=== PATIENT | female | born 1995 | race Caucasian/White ===

== ENCOUNTER 2019-09-11 23:57 | Inpatient (IN) | payer OTHER, SELFPAY ==
[2019-09-11 06:05] VITALS: BMI 27.3
--- NOTE | 2019-09-11 07:58 | OB.TRI.HP_ITS ---
History of Present Illness Date of Service: 09/11/19 Was patient seen by the physician?: Yes Reason For Visit: R/O LABOR Date of Service: 09/11/19 Final DARCY: 09/11/19 Gestational age: 40 Weeks and 0 Days History of Present Illness: 24yo @ 40 weeks, c/o contractions- found to be 3cm on initial exam- made change to 4cm but patient reports ctx are more sporadic. pt planning natural child . 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
[2019-09-12] MEDS: 0.9% Saline Lock 10 ML Syringe IV (00:25)
[2019-09-12 00:34] LABS: Absolute Lymphocyte Count 1.02 X10^3/uL (0.83-4.51); Absolute Neutrophil Count 11.9 X10^3/uL (2.0-7.7); Basophil# 0.01 X10^3/uL; Basophil% 0.1 % (0-1); Eosinophil# 0.01 X10^3/uL; Eosinophils% 0.1 % (0-5); Hematocrit 36.9 % (37-47); Hemoglobin 12.9 g/dL (12.0-15.0); Lymphocyte # 1.02 X10^3/ul (4.0); Lymphocyte % 7.4 % (19-41); Mean Corpuscular Hgb 33.9 pg (27.0-32.0); Mean Corpuscular Volume 97.1 fL (81-99); Monocyte# 0.75 X10^3/uL; Monocyte% 5.5 % (0-10); NRBC Flagged by Analyzer 0 % (0-5); Neutrophil # 11.89 X10^3/uL (2.7-7.7); Neutrophil % 86.7 % (47-70); Platelet Count 188 K/mm3 (150-450); RBC Distribution Width CV 12.1 % (11.6-14.6); RBC Distribution Width SD 43.2 fl (35.1-43.9); White Blood Count 13.7 K/mm3 (4.4-11.0)
--- NOTE | 2019-09-12 02:32 | PCM.HP.OB ---
History Date of Admission: 09/11/19 Final DARCY: 09/11/19 Final DARCY Source: LMP Gestational age: 40 Weeks and 1 Days History of this : This is a 24 year-old, G 1P0 at 40.1 weeks gestational age presents in active labor- planning natural child Allergies No Known Allergies Allergy (Verified 09/12/19 00:28) Home Medications: Home Medications Pnv No.95/Ferrous Fum/Folic AC [ Formula] 1 ea PO DAILY 09/11/19 Smoking Status: Never smoker Alcohol: None Number of Fetus(es): 1 History Past Pregnancies: Past Pregnancies Delivery Date Name GA/ Weeks Outcome Route Wt Infant Sex Labor Length Anesthesia Delivery Location Provider FOB Labs: gbs neg, O neg Expected Delivery Method: Spontaneous Vaginal Physical Exam General: Alert, Oriented x3 Abdomen: Soft, Gravid Neurological: Cranial nerves II-XII grossly intact 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 admit to L&D monitor fhr/toco declines Pain mgmt - planning natural child anticipate
--- NOTE | 2019-09-12 05:33 | PCM.PN.BLA ---
Progress Note pt seen at bedside, pushing for approximately one hour. pt is exhausted and is considering an epdiural for pain relief and to rest. Will continue to push at this time. Discussed she is making progress FH at +1 station, discussed she does have prominent pubic bone and fetus feels like possibly OP position. pt wants to continue pushing at this time.
[2019-09-12] MEDS: Lactated Ringers 500 ML 999 ML IV (05:45)
[2019-09-12] MEDS: Oxytocin 30 units/NS 500 ml 30 UNITS/500 ML IV.SOLN 334 UNITS IV (06:17)
--- NOTE | 2019-09-12 06:34 | PCM.OPRPT ---
Vaginal Delivery Maternal Presentation: Active Labor Amniotic Membrane Rupture Type: Artificial Amniotic Fluid Description: Clear Final DARCY: 09/11/19 Gestational age: 40 Weeks and 1 Days Date of Procedure: 09/12/19 Pre-Operative Diagnosis: term gestation, spontaneous labor Post-Operative Diagnosis: live male infant Surgery/ Procedure Performed: Vacuum Assisted Vaginal Delivery Type of Anesthesia: None Description of Procedure: Maternal exhaustion. Good maternal pushing efforts. Making progress head at the +3 station. Patient was counseled on application of Kiwi vacuum. Patient was counseled on the risks of using the vacuum including but not limited to vaginal lacerations, scalp lacerations, brain bleeds. Patient and want to proceed with its use. At this time the bladder was drained approximately 30 cc of urine was expelled. Vacuum was applied at the flexion point and with good maternal pushing efforts vacuum was used for a total of 2 contractions 1 pop off at this time the head was . after the pop off lidocaine was injected into the perineum and a right mediolateral episiotomy was performed. At this point with good maternal pushing efforts the head was delivered followed by the shoulders and the rest of infant's body. The infant was pink and vigorous and placed on the maternal chest. Delayed cord clamping was performed. Respiratory Therapy Manager respiratory and other nursing staff were in the room in case of need of extra assistance. RML second-degree was appreciated. Lidocaine was injected at the episiotomy site. It was repaired using 2-0 Vicryl suture and 3-0 rapide. Sent was delivered intact without complication. Presentation: Vertex Placental Delivery Description: Spontaneous Placenta Disposition: [facility] Cord Vessel Description: 3 Vessels Cord Entanglement: None Estimated Blood Loss: 350 Infant A gender: Male (1 minute): 8 (5 minute): 9 Episiotomy Description: Right Mediolateral, 2nd degree Laceration: None Medications given after delivery: IV Pitocin Complications: None
[2019-09-12] MEDS: Ibuprofen 600 MG Tablet PO ×2 (07:42→16:05)
[2019-09-12 12:38] VITALS: BP 102/57; PULSE 102; RESP 14; TEMP 36.9
[2019-09-12 15:39] VITALS: BP 115/58; PULSE 104; RESP 14; TEMP 36.3
[2019-09-12 20:33] VITALS: BP 113/51; PULSE 102; RESP 14; TEMP 36.8
[2019-09-13 04:21] VITALS: BP 106/59; PULSE 94; RESP 14; TEMP 36.7
--- NOTE | 2019-09-13 08:10 | PCM.PN.OB ---
Subjective: No complaints - Physical Exam Vitals/I&O's: Vital Signs Temp Pulse Resp BP 98.1 F 94 14 106/59 L 09/13/19 04:21 09/13/19 04:21 09/13/19 04:21 09/13/19 04:21 Oxygen Delivery Method Room Air Weight: 159 lb 9.835 oz Body Mass Index (BMI) 27.3 Intake and Output for Last 24 Hours 09/11/19 09/12/19 09/13/19 23:59 23:59 23:59 Intake Total 1000 / 1000 Output Total 950 / 950 Balance 50 / 50 General: Alert, Oriented x3 Abdomen: Soft, Non Tender, Non-Distended - ff mid & below umb Extremities: No Calf Tenderness Laboratory Results 09/12/19 08:12: Screen NEGATIVE, Baby's Blood Type O POSITIVE, Baby's SUJIT NEGATIVE Current Medications Acetaminophen (Tylenol) 1,000 mg PO Q8H PRN PRN PRN Reason: Pain Score 1-3/10 Bisacodyl (Dulcolax) 10 mg RECTAL UD PRN PRN Reason: If no BM Dibucaine (Dibucaine) 1 applic TOPICAL TID PRN PRN; Protocol PRN Reason: Discomfort Hydrocortisone (Hytone) 1 applic TOPICAL TID PRN PRN; Protocol PRN Reason: Discomfort Ibuprofen (Motrin) 600 mg PO Q6H PRN PRN PRN Reason: Pain Score 1-3/10 Last Admin: 09/12/19 16:05 Dose: 600 mg Documented by: Methylergonovine Maleate (Methergine) 0.2 mg IM X1 PRN PRN Reason: Excess bleeding/uterine atony Ondansetron HCl (Zofran) 4 mg IV Q4H PRN PRN PRN Reason: Nausea Oxycodone HCl (Oxyir) 5 - 10 mg PO Q4H PRN PRN PRN Reason: Pain Score 4-10/10 Senna/Docusate Sodium (Senokot-S, Yamilka-Colace) 1 - 2 tablet PO DAILY PRN PRN PRN Reason: Constipation Simethicone (Mylicon) 80 mg PO PCHS PRN PRN Reason: Indigestion/Stomach pain Sodium Chloride () 5 - 15 ml IV UD PRN PRN Reason: SALINE FLUSH Medical Necessity - Tobacco Use Smoking Status: Never smoker Assessment/Plan PPD#1 Routine care D/c home per patient request
[2019-09-13 08:45] VITALS: BP 96/57; PULSE 96; RESP 24; TEMP 37
[2019-09-13] MEDS: Ibuprofen 600 MG Tablet PO (10:32)
--- NOTE | 2019-09-13 11:12 | DCINST_ITS ---
Discharge Diet: No Restrictions Discharge Activity: Return to Normal Activity, May not drive while taking narcotic pain medications., May Shower May resume sexual activity in: 4-6 weeks Additional Activity Instructions:: Nothing in the vagina for 4-6 weeks. You may return to work/school in 6 weeks. Call your doctor if your incision/area has: Continuous Slow Oozing, Sudden Increased Bleeding, Increased Pain/ Swelling, Increased Redness, Foul Smelling Discharge Additional Instructions: If you experience any of the following, contact your healthcare provider. * Bleeding that soaks a pad every hour for 2 hours * Fever 100.4 or higher * Unrelieved incision or abdominal pain * Swelling, redness, discharge or bleeding from your incision or episiotomy site * Your incision begins to separate * Problems urinating (including inability to urinate or burning while urinating). * Visual changes * Severe headache * Flu-like symptoms * Pain or redness in one of both of your breasts * Pain, warmth, tenderness or swelling in your legs, especially the calf area * Frequent nausea and vomiting * Symptoms of depression or anxiety If you experience any of the following, call 911 or go to the nearest Emergency Room. * Chest pain * Problems breathing * Seizure activity * Partial or complete paralysis of a body part, slurred speech, weakness or drooping of the face, or a sudden inability to walk or hold your balance Allergies/Adverse Reactions: Allergies No Known Allergies Allergy (Verified 09/12/19 00:28) Medications to take at Discharge Pnv No.95/Ferrous Fum/Folic AC [ Formula Tablet] 1 ea PO DAILY 09/11/19 Acetaminophen [Tylenol] 1,000 mg PO Q8H PRN PRN tab 09/13/19 Ibuprofen [Motrin] 600 mg PO Q6H PRN PRN tab 09/13/19 Please Follow Up With: Celi Salgado MD - [phone] When: Call to make an appointment with your doctor's office in 1-2 and 6 weeks or as needed Primary Care Physician: Care Physician,No Primary [Primary Care Provider] - Test Results: Test results from this visit will be discussed in further detail at your follow- up appointment, if applicable.
[2019-09-13 14:27] VITALS: BP 106/62; PULSE 77; TEMP 36.8
== END 2019-09-13 17:20 | disposition home or self-care (01) | DRG 807 ==
PROVIDERS: Admitting Provider Obstetrics & Gynecology; Visit Provider Obstetrics & Gynecology
DX: O48.0 Post-term pregnancy (principal); Z37.0 Single live birth; Z3A.40 40 weeks gestation of pregnancy
CPT/HCPCS: 59025; 59050; 85025; 85461; 86850; 86900; 86901; 90384; 99218; J7120; A4216; G0378; J2790